=== PATIENT | female | born 1995 | race Asian ===

== ENCOUNTER 2019-09-27 20:24 | Emergency (ER) | payer OTHER ==
[~2019-09-27] VITALS: Ht 165.1 cm; Wt 73.9 kg
[2019-09-28] MEDS ORDERED: BACLOFEN 10 MG TAB PO ONE (01:30)
[2019-09-28] MEDS ORDERED: HYDROcodone-ACET 10/325MG TAB PO ONE (01:30)
[2019-09-28 01:55] VITALS: BP 125/99
== END 2019-09-28 01:54 | disposition home or self-care (01) ==
LOC: ER 20:28
DX: M62.838 Other muscle spasm (principal); M54.2 Cervicalgia; R51 Headache; V49.9XXA Car occupant (driver) (passenger) injured in unspecified traffic accident, initial encounter; Y93.89 Activity, other specified; Y92.89 Other specified places as the place of occurrence of the external cause; Y99.8 Other external cause status
CPT/HCPCS: 70450; 72125

== ENCOUNTER 2019-10-07 08:37 | Emergency (ER) | payer SELFPAY ==
[~2019-10-07] VITALS: Ht 165.1 cm; Wt 77.1 kg
[2019-10-07 08:55] VITALS: BP 128/63
[2019-10-07] MEDS ORDERED: KETOROLAC TROMETH 60MG/2ML VIAL IM ONE (10:15)
[2019-10-07] MEDS ORDERED: METHOCARBAMOL 500 MG TAB PO ONE (10:15)
== END 2019-10-07 10:49 | disposition home or self-care (01) ==
LOC: ER 08:39
DX: M54.16 Radiculopathy, lumbar region (principal); M43.06 Spondylolysis, lumbar region
CPT/HCPCS: 72100; 96372; 99283; J1885